=== PATIENT | male | born 1990 | race Caucasian/White ===

== ENCOUNTER 2016-05-20 17:46 | Emergency (ER) | payer BC, OTHER ==
[2016-05-20 18:48] VITALS: BP 149/93; PULSE 83; TEMP 97.9; BMI 24.5
[2016-05-20] MEDS ORDERED: 2-OCTYL CYANOACRYLATE PEN TOP ONE (20:37)
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
[2016-05-20] MEDS ORDERED: IBUPROFEN 600 MG TAB PO ONE ×2 (20:44)
== END 2016-05-20 20:48 | disposition home or self-care (01) ==
LOC: ED 17:46 → EDMC 20:48
DX: S01.91XA Laceration without foreign body of unspecified part of head, initial encounter (principal); W22.01XA Walked into wall, initial encounter; Y93.I9 Activity, other involving external motion
CPT/HCPCS: 12011; 99283; J3490